=== PATIENT | female | born 1990 | race Caucasian/White ===

== ENCOUNTER → 2019-10-01 15:32 | Outpatient (CLI) | payer OTHER, SELFPAY ==
--- NOTE | ~2019-10-01 | MR_ITS ---
EXAMINATION: MR hip LT wo/w con DATE: 10/01/2019 16:28 INDICATION: Labral tear presenting with severe left hip pain TECHNIQUE: Magnetic resonance imaging (MRI) of the left hip was performed without and with 15 mL [place] intravenous contrast. Sequences included full-field axial PD-weighted FS FSE, T1-weighted FS FSE and T1-weighted FSE, coronal of the pelvis with PD-weighted FS FSE, small field of view of the l eft hip with axial PD-weighted FS FSE, sagittal PD-weighted FS FSE and coronal PD weighted FS FSE. Ad ditional radial T1-weighted FGR oriented orthogonal to the acetabular rim were obtained for evaluatio n of the labrum. Postcontrast large [id number] axial T1-weighted FS FSE the pelvis was also obtain ed. COMPARISON: None FINDINGS: Bones/labrum/cartilage: Alignment is normal. No fracture, avascular necrosis or pathologic marrow replacing process. Labrum is normal. Articular cartilage is normal. Fluid: Symmetric physiologic amount of fluid within both hip joints. Soft tissues: Normal and symmetric muscle bulk and signal in the pelvis and visualized proximal thighs. The iliopso as, gluteal and proximal hamstring tendons are normal. 2.3 cm right adnexal cyst with thin peripheral rim of enhancement. T-shaped IUD in expected position within the anteverted uterus. Limited evaluati on of visceral organs of the pelvis is otherwise unremarkable. No pathologically enlarged pelvic/ing uinal lymphadenopathy. IMPRESSION: 1. Unremarkable left hip. 2. 2.3 similar right adnexal cyst and IUD in expected position in the uterus. Reviewed, dictated and finalized at location A.
[2019-10-01 15:56] LABS: Estimated Glomerular Filt Rate > 60
== END ==
PROVIDERS: Visit Provider Chiropractor Rehabilitation
DX: M25.552 Pain in left hip (principal); D35.01 Benign neoplasm of right adrenal gland
CPT/HCPCS: 36415; 73723; A9577

== ENCOUNTER 2020-02-01 08:05 | Emergency (ER) | payer OTHER, SELFPAY ==
[2020-02-01 08:09] VITALS: BP 106/71; PULSE 81; RESP 20; TEMP 36.6; O2SAT 100
--- NOTE | 2020-02-01 08:19 | ED.URI ---
HPI - URI/Sore Throat General Chief Complaint: Upper Respiratory Infection Stated Complaint: cough/runny nose Time Seen by Provider: 02/01/20 08:19 Source: patient and RN notes reviewed Limitations: no limitations History of Present Illness HPI Narrative: 29-year-old female who presents to [facility] with 2-1/2-week duration of cough, body aches, sinus congestion,with yellow mucous expectorated. Patient states that she had COVID the end of October. She also states that her and daughter have been ill also and were checked for COVID and were negative. Patient states that she has some maxillary sinus pressure and that when she blows her nose she has had yellow drainage with some blood noted,feels her symptoms have become worse the past week. Patient states some right back pain associated with cough. Patient denies any acute dyspnea, no ear pain or acute sore throat. MD elicited complaint: cough, rhinorrhea, nasal congestion and other (right back pain) Pertinent past history: sinusitis and other (Bronchitis, strep) Onset (ago): week(s) (2.5) Consistency: progressively worsening Severity: mild Pain scale (0-10): 3 Description of mucous: yellow Able to tolerate fluids by mouth: Yes Exacerbating factors: exertion Relieving factors: OTC cold medicine Context: sick contacts Associated symptoms: rhinorrhea, nasal congestion and cough Treatments prior to arrival: cold medicine Related Data Home Medications Medication Instructions Recorded Confirmed sertraline mg 02/01/20 Allergies Allergy/AdvReac Type Severity Reaction Status Date / Time codeine Allergy Intermediate Nausea and Unverified 07/02/18 18:56 Vomiting Penicillins Allergy Unknown Hives / Verified 07/02/18 18:56 Red Face Review of Systems Review of Systems: Narrative: CONSTITUTIONAL: Denies fever, chills, or sweats. EYES: Denies visual changes, redness, or discharge. ENT: positive rhinorrhea, congestion,no acute sore throat, or otalgia. CARDIOVASCULAR: Denies chest pain, palpitations, or edema. RESPIRATORY: Positive cough no dyspnea. GASTROINTESTINAL: Denies abdominal pain, nausea, vomiting, or diarrhea. GENITOURINARY: Denies dysuria or hematuria. SKIN: Denies rash or itching. MUSCULOSKELETAL: positive for right back pain,no joint pain, some myalgia. NEUROLOGIC: Denies headache, numbness, or weakness. PSYCHIATRIC: Positive history of post anxiety or depression. All systems reviewed & are unremarkable except as noted in HPI and below PMFSH Past Medical History Medical History (Updated 02/01/20 @ 08:50 by Laura Hidalgo NP) Elevated cholesterol Frequent UTI depression Vocal cord anomaly Surgical History Surgical History (Updated 02/01/20 @ 08:45 by Laura Hidalgo NP) Hx of cystoscopy Family History Family History (Updated 02/01/20 @ 08:47 by Laura Hidalgo NP) Father Hyperlipidemia Social History Social History (Updated 02/01/20 @ 08:48 by Laura Hidalgo NP) Smoking status: Never smoker Alcohol intake: unknown Substance use: never Living arrangements: with family Additional occupation/education comments: teacher Gender identity (if verbalized by the patient): Female Comments At time of signature, agree with nursing past medical, surgical, social and family history. There is no relevant family history pertinent to the presenting complaint Exam Narrative: Exam Narrative: GENERAL: Well-appearing, well-nourished, and in no acute distress. HEAD: Normocephalic, atraumatic. EYES: PERRLA and EOMI. ENT: Nares red with swelling, yellow rhinorrhea with some blood tinge. Mucous membranes moist.TMs normal with good light reflex, Throught red no lesions or exudates or tonsil enlargement, post nasal drainage noted in kendra of throat. NECK: Supple.no lymphadenopathy CHEST: Clear to auscultation. No respiratory distress.SAO2 100% on room air,some right sided back pain associated with cough HEART: R
== END 2020-02-01 08:39 | disposition home or self-care (01) ==
PROVIDERS: Emergency Provider Registered Nurse
DX: J01.00 Acute maxillary sinusitis, unspecified (principal); Z86.19 Personal history of other infectious and parasitic diseases; Z87.440 Personal history of urinary (tract) infections
CPT/HCPCS: 99213; G0463

== ENCOUNTER → 2022-03-01 15:55 | Outpatient (CLI) | payer OTHER, SELFPAY ==
--- NOTE | ~2022-03-01 | XR_ITS ---
EXAMINATION: XR cervical spine 4-5V DATE: 03/01/2022 16:22 INDICATION: Neck pain. TECHNIQUE: 4 views of cervical spine were obtained. COMPARISON: None. FINDINGS: Bone alignment is normal. Vertebral body heights and intervertebral disc heights are normal . The facet joints are normal. No central canal stenosis or prevertebral soft tissue swelling. IMPRESSION: 1. Normal cervical spine. Reviewed, dictated and finalized at location A. [employer] IMPRESSION: 1. Normal cervical spine.
--- NOTE | ~2022-03-01 | XR_ITS ---
EXAMINATION: XR thoracic spine 3V DATE: 03/01/2022 16:23 INDICATION: Mid back pain. Neck pain. TECHNIQUE: 3 views of thoracic spine were obtained. COMPARISON: None. FINDINGS: There is 5 degrees dextrocurvature of thoracic spine and 11 degrees levoscoliosis of thorac olumbar spine. Vertebral body heights are normal. There is mildly decreased disc height at multiple l evels in upper thoracic spine with endplate osteophytes. IMPRESSION: 1. Mild thoracic spondylosis. 2. Scoliosis. Reviewed, dictated and finalized at location A. [employer]
== END ==
PROVIDERS: PCP Internal Medicine; Visit Provider Chiropractor Rehabilitation
DX: M54.2 Cervicalgia (principal); M47.894 Other spondylosis, thoracic region; M41.9 Scoliosis, unspecified
CPT/HCPCS: 72050; 72072